=== PATIENT | female | born 1990 | race Caucasian/White ===

== ENCOUNTER 2019-04-29 03:48 | Emergency (ER) | payer SELFPAY ==
[~2019-04-29] VITALS: Ht 165.1 cm; Wt 63.5 kg
--- NOTE | 2019-04-29 03:50 | NUR ---
To bed 2 [facility] paramedics c/o sever right sided back pain s/p slipped and fall on water on the floor hurting her back. Patient reports that she has been laying on the floor and couldn't get up because of pain on her back. No urinary or bowel incontinence as per pt report. Patient denies hitting her head or head injury and denies ko. As per paramedics patient was eating a bowl of cereal on the floor. Pt [id number] no acute distress noted, resp even and unlabored. er md at bedside to eval pt with orders received. will carry out orders.
[2019-04-29] MEDS ORDERED: KETOROLAC TROMETHAMINE INJ 60 MG/2 ML VIAL IM ONE ×2 (04:00→04:07)
[2019-04-29] MEDS ORDERED: DIAZEPAM 5 MG TABLET PO ONE (04:00)
[2019-04-29] MEDS ORDERED: DIAZEPAM 5 MG TABLET ONE (04:07)
--- NOTE | 2019-04-29 05:34 | NUR ---
pt back from radiology. pending ct result.
--- NOTE | 2019-04-29 06:17 | NUR ---
pt asleep, no acute distress noted, resp even and unlabored. attempted to discharge pt. pt reports that she is still in pain and unable to get up. er md made aware.
--- NOTE | 2019-04-29 06:50 | NUR ---
Attempted to get pt out of bed. Pt states "You don't understand, I was on the floor for 5 hours because of pain, how do you expect me to get up just like that. If I tell you I cant get up, I can't get up OK!" ER made aware.
--- NOTE | 2019-04-29 07:34 | NUR ---
REPORT GIVEN TO AM SHIFT RN POLINA.
--- NOTE | 2019-04-29 07:46 | NUR ---
Patient discharged to home in stable condition. Written and verbal after care instructions given. Patient verbalizes understanding of instruction.
[2019-04-29 07:47] VITALS: BP 118/62
== END 2019-04-29 07:51 | disposition home or self-care (01) ==
LOC: ER 03:49
DX: S32.029A Unspecified fracture of second lumbar vertebra, initial encounter for closed fracture (principal); S32.039A Unspecified fracture of third lumbar vertebra, initial encounter for closed fracture; F12.10 Cannabis abuse, uncomplicated; F15.10 Other stimulant abuse, uncomplicated; Z88.8 Allergy status to other drugs, medicaments and biological substances; W01.198A Fall on same level from slipping, tripping and stumbling with subsequent striking against other object, initial encounter; Y93.89 Activity, other specified; Y92.89 Other specified places as the place of occurrence of the external cause; Y99.8 Other external cause status
CPT/HCPCS: 36415; 72131; 84702; 96372; 99284; J1885